=== PATIENT | male | born 1960 | race Caucasian/White ===

== ENCOUNTER → 2017-10-12 | Outpatient (CLI) | payer MEDICARE ==
[~2017-10-12] MED LIST: ACETAMINOPHEN650 M5; AMBIEN 5 MG TABL5 M1 PO; ASPIRIN81 M2 PO; BACITRACIN; CELEXA40 MG PO; COLACE 100 MG100 MG PO; ED-SPAZ0.125 MG; MIRALAX255 GM; MS CONTIN 30 MG30 M1 PO; MS CONTIN30 MG PO; MULTI-VITAMIN1 EAC5 PO; NEURONTIN 300300 M1 PO; OXYCODONE HCL15 MG PO; PRILOSEC 20 MG20 MG PO; ROXICODONE15 M1 PO; SENNA CONCENTR8.6 MG PO; SYNTHROID75 MCG PO; TESTOSTERONE IM; TUMS PO; VITAMIN D35000 UNI1 PO; [UNRECOGNIZED DRUG - OTHER]
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
== END ==
LOC: M.PC 02:08
DX: M79.662 Pain in left lower leg (principal); Z79.899 Other long term (current) drug therapy; Z90.79 Acquired absence of other genital organ(s); Z93.6 Other artificial openings of urinary tract status; Z98.890 Other specified postprocedural states

== ENCOUNTER → 2017-11-09 | Outpatient (CLI) | payer MEDICARE ==
--- NOTE | 2017-11-14 07:21 | PAINCON ---
[address] [address] PAIN MANAGEMENT CONSULTATION Name: DEEJAY CID Room: [facility]#: [id number] Admission: 11/09/17 Attend Phys: Dale Alvarado Discharge: Date of : 58 Report #: [id number] THIS REPORT FOR: //name// CC: Stephen Zelaya DATE OF SERVICE: 11/09/2017 ADDENDUM We reviewed the patient's buccal random drug swab from last visit, 10/12/2017. It was appropriately positive for oxycodone, gabapentin, and morphine as expected. There were no aberrant findings on the study. Discharged in good and stable condition. <ELECTRONICALLY SIGNED> By: Jayjay Zelaya DO 11/14/17 0721 0845 [id number] Zelaya DO /nt
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
== END ==
LOC: M.PC 01:30
DX: M79.605 Pain in left leg (principal); G89.29 Other chronic pain; Z93.0 Tracheostomy status; Z98.890 Other specified postprocedural states

== ENCOUNTER → 2017-12-07 | Outpatient (CLI) | payer MEDICARE ==
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
== END ==
LOC: M.PC 03:33
DX: G89.4 Chronic pain syndrome (principal); M79.662 Pain in left lower leg; Z79.899 Other long term (current) drug therapy; Z87.09 Personal history of other diseases of the respiratory system

== ENCOUNTER → 2018-01-04 | Outpatient (CLI) | payer MEDICARE ==
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
== END ==
LOC: M.PC 02:26
DX: M79.605 Pain in left leg (principal); G89.4 Chronic pain syndrome; Z79.899 Other long term (current) drug therapy

== ENCOUNTER → 2018-02-01 | Outpatient (CLI) | payer MEDICARE ==
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
== END ==
LOC: M.PC 04:34
DX: G89.4 Chronic pain syndrome (principal); M79.2 Neuralgia and neuritis, unspecified; Z79.899 Other long term (current) drug therapy

== ENCOUNTER → 2018-03-01 | Outpatient (CLI) | payer MEDICARE ==
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
== END ==
LOC: M.PC 03:55
DX: G89.4 Chronic pain syndrome (principal); M79.2 Neuralgia and neuritis, unspecified; M25.552 Pain in left hip; J96.90 Respiratory failure, unspecified, unspecified whether with hypoxia or hypercapnia; Z79.899 Other long term (current) drug therapy

== ENCOUNTER → 2018-03-29 | Outpatient (CLI) | payer MEDICARE ==
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
== END ==
LOC: M.PC 04:12
DX: M79.662 Pain in left lower leg (principal); G89.4 Chronic pain syndrome; Z79.899 Other long term (current) drug therapy

== ENCOUNTER → 2018-05-23 | Outpatient (CLI) | payer MEDICARE ==
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
== END ==
LOC: M.PC 04:47
DX: M25.552 Pain in left hip (principal); M79.672 Pain in left foot; J96.00 Acute respiratory failure, unspecified whether with hypoxia or hypercapnia; G89.4 Chronic pain syndrome; Z79.899 Other long term (current) drug therapy